=== PATIENT | male | born 2000 | race Caucasian/White ===

== ENCOUNTER 2020-11-06 10:54 | Day surgery (SDC) | payer BC ==
--- NOTE | 2020-11-06 08:46 | HP ---
DATE OF SURGERY: 11/06/2020 HISTORY OF PRESENT ILLNESS: The patient is a 20 year old gentleman sore mid abdomen. It is felt he had abdominal wall hernia. It was felt he would benefit from surgical repair. PAST MEDICAL HISTORY: He denies any chronic illnesses. PAST SURGICAL HISTORY: He denies any prior surgeries. MEDICATIONS: None. ALLERGIES: NKDA. FAMILY HISTORY: Negative in regards to this problem. SOCIAL HISTORY: No alcohol abuse. REVIEW OF SYSTEMS: Fourteen systems reviewed negative or noncontributory as above and per preadmission questionnaire. PHYSICAL EXAMINATION: GENERAL: No acute distress. HEENT: Sclerae nonicteric. NECK: No JVD. CHEST: Equal excursion, nonlabored breathing. CVS: Regular rate and rhythm. ABDOMEN: Soft, had incarcerated ventral hernia likely with some preperitoneal or omental fat. I feel he would benefit from repair. No peritoneal signs. EXTREMITIES: No edema. NEURO: Alert, moving extremities symmetrically. PSYCH: Appropriate mood and affect. SKIN: Dry, intact. IMPRESSION: Symptomatic ventral hernia likely incarcerated with some preperitoneal fat or omentum. I feel he would benefit from repair. Discussed options of open versus laparoscopic assisted, had a long discussion of risks and benefits. He prefers laparoscopic repair of incarcerated ventral hernia with mesh possible open. He was explained the procedure in detail but not limited to bleeding or infection, risk of trocar injury or hernia, risk of bowel, bladder or blood vessel injury, risk of subsequent scar formation, adhesion or bowel obstruction, perioperative risk of ileus, risk of mesh infection possibly requiring removal, remote risk of mesh fracture or failure possibly creating issues with viscera or other structures possibly requiring other procedures, ongoing morbidity, general risk of aches and pains possibly chronic in nature, general risk of hematoma or seroma formation, possible need for open procedure, overall risk of hernia recurrence, general risk of anesthesia, deep venous thrombosis, pulmonary embolism, pneumonia. He understands and agrees to the planned procedure, will proceed with laparoscopic repair of incarcerated ventral hernia with mesh possible open hopefully as an outpatient. He understands if it requires using a larger piece of mesh, he might need to stay overnight.
[~2020-11-06 10:54] MED LIST: Lactated Ringers 1,000 ML IV ONE; Sensorcaine 0.25% 10 ML ONE
[2020-11-06] MEDS: Lactated Ringers 1,000 ML IV SCH ×2 (11:07→17:04)
[2020-11-06] MEDS ORDERED: CEFAZOLIN 2 GM-D5W BAG** 2 GM/50 ML ML IV SCH (11:30)
[2020-11-06 12:09] LABS: ANION GAP 10.5 MEQ/L (5-15); BLOOD UREA NITROGEN 15 mg/dL (9-20); CHLORIDE 102 mmol/L (98-107); Calcium 9.6 mg/dL (8.4-10.2); Carbon Dioxide 28 mmol/L (22-30); EST GLOMERULAR FILTRATION RATE > 60.0 ML/MIN; Glucose 93 mg/dL (74-106); Potassium 4.2 mmol/L (3.5-5.1); SODIUM 136 mmol/L (137-145)
[2020-11-06] MEDS ORDERED: SUBLIMAZE 250 MCG/5 ML ONE (12:42)
[2020-11-06] MEDS ORDERED: DIPRIVAN 200 MG/20 ML IV ONE (12:42)
[2020-11-06] MEDS ORDERED: Zemuron 100 MG/10 ML ONE ×2 (12:42→14:53)
[2020-11-06] MEDS ORDERED: Versed 2 MG/2 ML Injection ONE (12:42)
[2020-11-06] MEDS ORDERED: Lactated Ringers 0 ML IV ONE (13:06)
[2020-11-06] MEDS ORDERED: Naropin 0.5% 30 ML VIAL ONE (15:19)
[2020-11-06] MEDS ORDERED: EPINEPHRINE 1MG/ML AMP ONE (15:19)
[2020-11-06] MEDS ORDERED: XYLOCAINE 1%/Epi 1:100000 MDV 20 ML ONE (15:21)
[2020-11-06] MEDS ORDERED: BRIDION 200MG/2ML IV ONE (15:22)
[2020-11-06] MEDS ORDERED: DEMEROL 50 MG ONE (15:54)
[2020-11-06] MEDS ORDERED: TORAdol 30 mg Injection ONE (15:58)
[2020-11-06] MEDS ORDERED: Hydromorphone 1 mg/ml Injection ONE (16:03)
[2020-11-06] MEDS ORDERED: SUBLIMAZE 100 MCG/2 ML ONE (16:03)
[2020-11-06] MEDS ORDERED: Compazine 10 MG/2 ML ONE (16:06)
[2020-11-06 17:21] LABS: Appearance CLEAR (CLEAR); Bacteria FEW /HPF (NEGATIVE); Bilirubin NEGATIVE (NEGATIVE); Blood SMALL Ery/ul (0-5); Glucose NEGATIVE (NEGATIVE); Ketones NEGATIVE (NEGATIVE); Leukocyte Esterase NEGATIVE (NEGATIVE); Mucus SLIGHT /HPF (NEGATIVE); Nitrite NEGATIVE (NEGATIVE); Protein,Urine Dip NEGATIVE (Negative); Specific Gravity 1.018 (1.005-1.025); Urobilinogen NEGATIVE mg/dL (0-1)
[2020-11-06 18:12] VITALS: O2SAT 96
[2020-11-06 18:15] VITALS: BP 134/90; PULSE 99
--- NOTE | 2020-11-07 08:15 | OP ---
SURGERY DATE/TIME: 11/06/2020 1357 PREOPERATIVE DIAGNOSIS: Incarcerated ventral hernia. POSTOPERATIVE DIAGNOSIS: Incarcerated ventral hernia. PROCEDURE: Repair of two incarcerated ventral hernias en bloc with a single piece of mesh. SURGEON: Dr. Monroe Martinez. ANESTHESIA: General. ESTIMATED BLOOD LOSS: Minimal. INDICATIONS: As noted above. Risks and benefits explained in detail and not limited to and consent obtained. DESCRIPTION OF PROCEDURE AND FINDINGS: The patient is taken to the operating room. General anesthesia induced. Abdomen prepped and draped in usual sterile fashion. After official time out and no disagreement with planned procedure, a transverse incision made in the infraumbilical area. Fascia grasped and pulled up. Veress needle inserted and tested with saline. Pneumoperitoneum with opening pressure 0 to 15. A left upper quadrant 5 mm bladeless port with camera inserted without difficulty followed by 11 mm port, left lower quadrant 5 mm port and right mid abdomen 5 mm port placed under direct vision with the camera. There was quite a bit of obesity, was noted to have a couple of different hernias. One was smaller in umbilical area and there was another epigastric ventral hernia both had incarcerated fat in them and it was felt they needed to be repaired en bloc with a single piece of mesh. The fat was reduced out of the defects. The area was measured. It was felt the size 8 Ventralex XT mesh most appropriate sized mesh. Four quadrant 0 Ethibonds were placed. A small incision is made just cephalad above the defect area which allowed the suture passer and used to reapproximate the patient's weakened fascial edges back together in the midline where they belong with interrupted 0 PDS. These sutures were tagged at this point with a 12 port placed through the defect allowing the mesh to be dropped in. The port was removed. PDS suture reapproximated bringing the fascia back to the midline with a 0 Vicryl stay suture pulling the mesh up in the center keeping it oriented and centered over the defect. The four quadrant 0 Ethibonds were pulled up through and tied transfascially through four separate stab wounds. Once this was accomplished good hemostasis was noted. The mesh was then tacked about 1 cm apart around the periphery with additional tacks placed in the center to reduce risk of seroma formation followed by the mesh lying nice and flat in a tension-free manner. The pressure had been turned around to 10 at this stage to do this part of placing the mesh and securing and tacking to reduce distortion of abdominal wall. Good hemostasis noted. Pneumoperitoneum decompressed. Skin incision closed with 4-0 Vicryl in addition to 3-0 Vicryl placed in the area where the center port had been placed. The skin incision was closed with 4-0 Vicryl. Steri-Strips and sterile dressing applied. Anesthesia plan tap blocks for additional pain control. The patient tolerated the procedure well. There were no immediate complications.
== END 2020-11-06 18:05 | disposition home or self-care (01) ==
LOC: SDC 10:54
PROVIDERS: ATTEND Surgery
DX: K43.6 Other and unspecified ventral hernia with obstruction, without gangrene (principal)
CPT/HCPCS: 36415; 64488; 76937; 76942; 80048; 81001; 87086; J0171; J0690; J1170; J1885; J2175; J2250; J2704; J2795; J3010; L0625; C1781

== ENCOUNTER 2020-12-25 22:17 | Emergency (ER) | payer BC ==
[2020-12-25 22:27] VITALS: O2SAT 99
--- NOTE | 2020-12-25 22:54 | ERPHSYRPT ---
- History of Present Illness Historian: patient Exam Limitations: no limitations Patient Subjective Stated Complaint: pt c/o abd pain, like a tearing feeling Triage Nursing Assessment: pt states, "I was sitting in an office type chair and got up to go to bed and felt like a tearing in my stomach". This pain is to the right of the umbilicus. Pt had hernia surgery at the end of Oct, 2020. Abd lg, obese with hypoactive bs x4 quad, tender on palpation to area rt of umbilicus. Pt denies any n,v,d. Physician History: 20 yo wm s/p incarcerated ventral hernia repairon 11/06/20 complains of R sided abdominal pain after feeling rip while getting up from a chair. Pain is 0 now but up to a 10 when moving. He denies N/V/D/Fever/dysuria/hematuria/erythema-pus from repair wound. Timing/Duration: other (20:00) Quality: sharpness Abdominal Pain Onset Location: other (R of umbilicus/incision) Pain Radiation: no radiation Modifying Factors: Improves With: nothing, movement Associated Symptoms: denies symptoms Previous symptoms: no prior history Allergies/Adverse Reactions: No Known Drug Allergies Allergy (Verified 12/25/20 22:39) Home Medications: No Reportable Medications [No Reported Medications] 12/25/20 [History] Hx Tetanus, Diphtheria Vaccination/Date Given: Yes Hx Influenza Vaccination/Date Given: Yes Hx Pneumococcal Vaccination/Date Given: No Immunizations Up to Date: Yes Travel Risk - International Travel Have you traveled outside of the country in past 3 weeks: No - Coronavirus Screening Are you exhibiting any of the following symptoms?: No Close contact with a COVID-19 positive Pt in past 14-21 Days: No - Review of Systems Constitutional: No Symptoms Eyes: No Symptoms Ears, Nose, & Throat: No Symptoms Respiratory: No Symptoms Cardiac: No Symptoms Abdominal/Gastrointestinal: No Symptoms, Abdominal Pain Genitourinary Symptoms: No Symptoms Musculoskeletal: No Symptoms Skin: No Symptoms Neurological: No Symptoms Psychological: No Symptoms Endocrine: No Symptoms Hematologic/Lymphatic: No Symptoms Immunological/Allergic: No Symptoms - Past Medical History Pertinent Past Medical History: Yes Neurological History: Other ENT History: No Pertinent History Cardiac History: No Pertinent History Respiratory History: Bronchitis Endocrine Medical History: No Pertinent History Musculoskeletal History: No Pertinent History GI Medical History: Hernia History: No Pertinent History Psycho-Social History: No Pertinent History Male Reproductive Disorders: No Pertinent History - Past Surgical History Past Surgical History: Yes Neuro Surgical History: No Pertinent History Cardiac: No Pertinent History Respiratory: No Pertinent History Gastrointestinal: Hernia Repair Genitourinary: No Pertinent History Musculoskeletal: No Pertinent History Male Surgical History: No Pertinent History - Social History Smoking Status: Never smoker Exposure to second hand smoke: No Drug Use: none Patient Lives Alone: Yes Significant Family History: no pertinent family hx - Nursing Vital Signs Nursing Vital Signs: Initial Vital Signs Temperature 98.4 F 12/25/20 22:26 Pulse Rate 98 H 12/25/20 22:26 Respiratory Rate 18 12/25/20 22:26 Blood Pressure 155/96 12/25/20 22:26 O2 Sat by Pulse Oximetry 99 12/25/20 22:26 Pain Scale Pain Intensity 6 - Physical Exam General Appearance: no apparent distress Eye Exam: PERRL/EOMI, eyes nml inspection Ears, Nose, Throat Exam: normal ENT inspection, TMs normal, pharynx normal, moist mucous membranes Neck Exam: normal inspection, non-tender, supple, full range of motion, No m eningismus, No mass, No Brudzinski, No Kernig's Respiratory Exam: normal breath sounds, lungs clear, airway intact, No respiratory distress Cardiovascular Exam: regular rate/rhythm, normal heart sounds, normal peripheral pulses Gastrointestinal/Abdomen Exam: soft (Supra-umbilical incision clean, dry, and intact/TTP right of umbilicus/no guarding or rebound), normal bowel sounds, tenderness, No distention, No mass, No guarding, No ecchymosis, No pulsatile mass, No rebound, No hernia Rectal Exam: deferred Back Exam: normal inspection Extremity Exam: normal inspection Neurologic Exam: alert, oriented x 3, cooperative, 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 Will have pt f/u w Dr. Jackson to f/u L renal mass Counseled pt/family regarding: need for follow-up, rad results - Departure Departure Disposition: Home Clinical Impression: Postoperative abdominal pain, Renal mass, left Condition: Stable Critical Care Time: No Referrals: JAMA JACKSON MD [Primary Care Provider] - Instructions: Acute Abdomen (Belly Pain), Adult (DC) Additional Instructions: Follow up with Tristan for continued pain. No lifting over 20 pounds until cleared by Dr. Hudson Follow up with Dr. Jackson about left renal mass Return to ER for increasing pain or temperature greater than 100.5
[2020-12-25 23:49] VITALS: BP 116/95; PULSE 71
--- NOTE | 2020-12-26 08:31 | XRAY ---
Indication: Right abdomen pain. Multiple contiguous axial images obtained through the abdomen and pelvis without contrast as ordered. Comparison: August 22, 2015. Lung bases are clear. Heart is not enlarged. Stomach is mildly fluid distended. Noncontrasted stomach and bowel loops appear nonobstructed. Normal appendix. Minimal descending/sigmoid diverticulosis without diverticulitis. Again splenomegaly today measuring 13.8 cm. New intact ventral hernia mesh graft. No free fluid/air. Left mid kidney demonstrates new 1.5 x 1.9 cm noncalcified exophytic mass. Remaining liver, gallbladder, pancreas, spleen, adrenal glands, kidneys, ureters, bladder, and aorta appear unremarkable for noncontrast exam. Osseous structures intact. Impression: 1. New left mid renal exophytic mass. CT or MRI with contrast exam may yield further information. 2. Incidental splenomegaly, colonic diverticulosis, and ventral hernia repair without complications. 3. Remaining CT abdomen/pelvis without contrast exam is negative. Comment: Preliminary interpretation was made by [facility]. No critical discrepancy.
== END 2020-12-25 23:51 | disposition home or self-care (01) ==
LOC: ED 22:17
DX: G89.18 Other acute postprocedural pain (principal); N28.89 Other specified disorders of kidney and ureter; R10.9 Unspecified abdominal pain
CPT/HCPCS: 36000; 74176; 99284

== ENCOUNTER 2022-07-26 14:13 | Emergency (ER) | payer BC ==
--- NOTE | 2022-07-26 14:15 | ERPHSYRPT ---
- History of Present Illness Time Seen by Provider: 07/26/22 14:15 Historian: patient, family Exam Limitations: no limitations Physician History: This is a 22-year-old overweight white male who is a patient of Dr. Jackson and who had a ventral hernia repair with mesh in October 2020. He also has known history of left renal mass and is status post some type of surgical procedure on this left kidney. Patient is on no medications and has no known drug allergies. This morning, he woke up and there was some pink drainage at the site of his umbilicus. There was sharp pain in this area as well. He has not had any nausea vomiting or diarrhea. He denies chest pain. He denies shortness of breath. Timing/Duration: today Activities at Onset: none Quality: sharpness, stabbing Abdominal Pain Onset Location: other (At the side of his umbilicus) Pain Radiation: no radiation Severity of Pain-Max: moderate Severity of Pain-Current: mild Modifying Factors: Improves With: nothing Associated Symptoms: denies symptoms Previous symptoms: no prior history Allergies/Adverse Reactions: No Known Drug Allergies Allergy (Verified 07/26/22 14:33) Home Medications: No Reportable Medications [No Reported Medications] 12/25/20 [History] Hx Tetanus, Diphtheria Vaccination/Date Given: Yes Hx Influenza Vaccination/Date Given: Yes Hx Pneumococcal Vaccination/Date Given: No Travel Risk - International Travel Have you traveled outside of the country in past 3 weeks: No - Coronavirus Screening Are you exhibiting any of the following symptoms?: No Close contact with a COVID-19 positive Pt in past 14-21 Days: No - Review of Systems Constitutional: No Symptoms Eyes: No Symptoms Ears, Nose, & Throat: No Symptoms Respiratory: No Symptoms Cardiac: No Symptoms Abdominal/Gastrointestinal: Abdominal Pain (Tenderness at the umbilical site) Genitourinary Symptoms: No Symptoms Musculoskeletal: No Symptoms Skin: No Symptoms Neurological: No Symptoms Psychological: No Symptoms Endocrine: No Symptoms Hematologic/Lymphatic: No Symptoms Immunological/Allergic: No Symptoms - Past Medical History Pertinent Past Medical History: Yes Neurological History: Other ENT History: No Pertinent History Cardiac History: No Pertinent History Respiratory History: Bronchitis Endocrine Medical History: No Pertinent History Musculoskeletal History: No Pertinent History GI Medical History: Hernia History: No Pertinent History Psycho-Social History: No Pertinent History Male Reproductive Disorders: No Pertinent History - Past Surgical History Past Surgical History: Yes Neuro Surgical History: No Pertinent History Cardiac: No Pertinent History Respiratory: No Pertinent History Gastrointestinal: Hernia Repair Genitourinary: No Pertinent History Musculoskeletal: No Pertinent History Male Surgical History: No Pertinent History - Social History Smoking Status: Never smoker Exposure to second hand smoke: No Drug Use: none Patient Lives Alone: Yes Significant Family History: no pertinent family hx - Nursing Vital Signs Nursing Vital Signs: Initial Vital Signs Temperature 97.8 F 07/26/22 14:23 Pulse Rate 88 07/26/22 14:23 Blood Pressure 126/86 07/26/22 14:23 O2 Sat by Pulse Oximetry 98 07/26/22 14:23 Pain Scale Pain Intensity 7 - Physical Exam General Appearance: no apparent distress, alert, anxiety, obese Eye Exam: PERRL/EOMI, eyes nml inspection Ears, Nose, Throat Exam: normal ENT inspection, moist mucous membranes Neck Exam: normal inspection, non-tender, supple, full range of motion Respiratory Exam: normal breath sounds, lungs clear, airway intact, No chest tenderness, No respiratory distress Cardiovascular Exam: regular rate/rhythm, normal heart sounds, normal peripheral pulses Gastrointestinal/Abdomen Exam: soft, normal bowel sounds, tenderness (Mild localized tenderness at the umbilicus with serosanguineous drainage that has dried in the umbilicus. 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 nml as tested, normal mood/affect, nml cerebellar function, nml station & gait, sensation nml Skin Exam: normal color, warm, dry Lymphatic Exam: No adenopathy SpO2 Interpretation: normal O2 Delivery: Room Air - Course Nursing assessment & vital signs reviewed: Yes Ordered Tests: Active Orders 24 hr Category Date Time Status ABDOMEN AND PELVIS W/0 CONTRAS [CT] Stat Exams 07/26/22 14:47 Completed CBC W DIFF Stat Lab 07/26/22 15:15 Completed CMP Stat Lab 07/26/22 15:15 Received Lab/Rad Data: Laboratory Result Diagrams 07/26/22 15:15 Laboratory Results 07/26/22 Range/Units 15:15 WBC 6.1 (4.0-10.5) x10^3/uL RBC 4.86 (4.1-5.6) x10^6/uL Hgb 14.6 (12.5-18.0) g/dL Hct 43.4 (42-50) % MCV 89.3 (78-100) fL MCH 30.0 (26-32) pg MCHC 33.6 (32-36) g/dL RDW 12.4 (11.5-14.0) % Plt Count 231 (150-450) x10^3/uL MPV 10.6 (7.5-11.0) fL Gran % 49.9 (36.0-66.0) % Immature Gran % (Auto) 0.2 (0.00-0.4) % Nucleat RBC Rel Count 0.0 (0.00-0.1) % Eos # (Auto) 0.25 (0-0.5) x10^3/uL Immature Gran # (Auto) 0.01 (0.00-0.03) x10^3u/L Absolute Lymphs (auto) 2.17 (1.0-4.6) x10^3/uL Absolute Monos (auto) 0.56 (0.0-1.3) x10^3/uL Absolute Nucleated RBC 0.00 (0.00-0.01) x10^3u/L Lymphocytes % 35.8 (24.0-44.0) % Monocytes % 9.2 (0.0-12.0) % Eosinophils % 4.1 (0.00-5.0) % Basophils % 0.8 (0.0-0.4) % Absolute Granulocytes 3.02 (1.4-6.9) x10^3/uL Basophils # 0.05 (0-0.4) x10^3/uL - Progress Progress: unchanged, re-examined Progress Note: 07/26/22 15:40 CAT scan of the abdomen and pelvis without contrast shows an intact mesh without complications in the area of the ventral hernia repair pair. There is no focal solid/cystic mass, abnormal fluid collection or emphysema present. Counseled pt/family regarding: lab results, diagnosis, need for follow-up, rad results - Departure Departure Disposition: Home Clinical Impression: Umbilical abnormality Condition: Stable Critical Care Time: No Referrals: JAMA JACKSON MD [Primary Care Provider] - Follow up/PCP as directed Additional Instructions: Diet as tolerated. Keep the umbilical site clean daily with soap and water and may also rinse the umbilicus out daily with hydrogen peroxide. Contact your general surgeon to make an appointment for evaluation of the umbilical site.
[2022-07-26 14:33] VITALS: BP 126/86; PULSE 88; O2SAT 98
--- NOTE | 2022-07-26 15:17 | XRAY ---
Indication: Leaking umbilicus. History ventral hernia repair. Multiple contiguous axial images obtained through the abdomen and pelvis without contrast. Comparison: February 12, 2021 Lung bases remain clear. Heart not enlarged. Intact umbilical ventral hernia mesh graft without focal solid/cystic mass, abnormal fluid collection, or emphysema. Stomach is distended with food/fluid. Noncontrasted stomach and bowel loops appear nonobstructed again with normal appendix. Interval surgical excision left mid renal mass. No free fluid/air. Mild diffuse fatty liver. Remaining liver, gallbladder, pancreas, spleen, adrenal glands, kidneys, ureters, bladder, and aorta are unremarkable for noncontrast exam. Osseous structures intact. Impression: 1. Intact ventral mesh graft without complications. 2. Fatty liver. 3. Remaining CT abdomen/pelvis without contrast exam is negative.
[2022-07-26 15:21] LABS: Absolute Neutrophil Ct (ANC) 3.02 x10^3/uL (1.4-6.9); Basophil (Absolute #) 0.05 x10^3/uL (0-0.4); Eosinophil % 4.1 % (0.00-5.0); Eosinophil (Absolute #) 0.25 x10^3/uL (0-0.5); Hematocrit 43.4 % (42-50); Hemoglobin 14.6 g/dL (12.5-18.0); Lymphocyte (Absolute #) 2.17 x10^3/uL (1.0-4.6); Lymphocytes % 35.8 % (24.0-44.0); Mean Cell Volume 89.3 fL (78-100); Mean Corpuscular Hgb Concent. 33.6 g/dL (32-36); Mean Platelet Volume 10.6 fL (7.5-11.0); Monocyte (Absolute #) 0.56 x10^3/uL (0.0-1.3); Monocytes % 9.2 % (0.0-12.0); Neutrophil % 49.9 % (36.0-66.0); Platelet Count 231 x10^3/uL (150-450); Red Blood Count 4.86 x10^6/uL (4.1-5.6); Red Cell Distribution Width 12.4 % (11.5-14.0); White Blood Count 6.1 x10^3/uL (4.0-10.5)
[2022-07-26 15:45] LABS: ALBUMIN 4.3 g/dL (3.5-5.0); ALKALINE PHOSPHATASE 96 U/L (38-126); ANION GAP 13.1 MEQ/L (5-15); BLOOD UREA NITROGEN 16 mg/dL (9-20); CHLORIDE 101 mmol/L (98-107); Carbon Dioxide 29 mmol/L (22-30); Creatinine 1 1.18 mg/dL (0.66-1.25); EST GLOMERULAR FILTRATION RATE > 60.0 ML/MIN; Glucose 99 mg/dL (74-106); Potassium 3.8 mmol/L (3.5-5.1); SGOT/AST 29 U/L (17-59); SGPT/ALT 49 U/L (0-50); SODIUM 139 mmol/L (137-145); Total Protein 7.7 g/dL (6.3-8.2)
== END 2022-07-26 15:51 | disposition home or self-care (01) ==
LOC: ED 14:13
DX: R10.33 Periumbilical pain (principal)
CPT/HCPCS: 36415; 74176; 80053; 85025; 99283